=== PATIENT | male | born 1960 ===

== ENCOUNTER → 2022-10-30 06:53 | Outpatient (CLI) | payer MEDICARE, SELFPAY ==
--- NOTE | ~2022-10-30 | MR_ITS ---
EXAMINATION: MR lumbar spine wo con DATE: 10/30/2022 07:29 INDICATION: Acute lumbar radiculopathy. Low back pain. Left leg pain and weakness. TECHNIQUE: Magnetic resonance imaging (MRI) of the lumbar spine was performed without intravenous con trast. COMPARISON: None FINDINGS: Bone alignment is normal. There are changes of anterior and posterior fusion procedures fro m L4 to S1 with interbody devices, healed interbody bone graft, and pedicle screws. There are Schmorl 's nodes at multiple levels. There is mildly decreased disc height at L3-L4. The distal spinal cord s ignal intensity is normal. The conus medullaris is at L1. The following disc levels are specifically discussed: L1-L2: The disc does not extend beyond the endplate margin. There is moderate bilateral facet joint o steoarthritis. There is mild bilateral neural foraminal stenosis. There is no central canal stenosis. L2-L3: The disc is mildly bulging. There is moderate bilateral facet joint osteoarthritis. There is m ild bilateral neural foraminal stenosis. There is no central canal stenosis. L3-L4: The disc is bulging. There is severe bilateral facet joint osteoarthritis. There is moderate b ilateral neural foraminal stenosis. There is mild central canal stenosis. L4-L5: There is no facet joint hypertrophy. There is no neural foraminal stenosis. There is no centra l canal stenosis. L5-S1: There is no facet joint hypertrophy. There is mild bilateral neural foraminal stenosis. There is no central canal stenosis. IMPRESSION: 1. Mild lumbar spondylosis. 2. Anterior posterior fusion procedures from L4 to S1. Reviewed, dictated and finalized at location A. MENTATION BILLING CLERK
== END ==
PROVIDERS: PCP Family Medicine; Visit Provider Physician Assistant
DX: M47.26 Other spondylosis with radiculopathy, lumbar region (principal); M96.1 Postlaminectomy syndrome, not elsewhere classified; Z98.1 Arthrodesis status
CPT/HCPCS: 72148